=== PATIENT | male | born 1955 | race Caucasian/White ===

== ENCOUNTER 2019-01-03 17:30 | Emergency (ER) | payer OTHER, MEDICARE ==
--- NOTE | 2019-01-03 20:47 | ER Document Report ---
ED Medical Screen (RME) - General Chief Complaint: Breathing Difficulty Stated Complaint: SHORTNESS OF BREATH Time Seen by Provider: 01/03/19 20:42 Primary Care Provider: LUIZ YOUNGER FNP [Primary Care Provider] - Follow up as needed Notes: 63-year-old male with chief complaint of one week of worsening dyspnea on exertion, inability to lay flat, and intermittent shortness of breath at rest. He also complains of bilateral lower extremity swelling which is new. [facility] Denies history of congestive heart failure. Denies chest pain. Medical history includes hypertension and insulin-dependent type 2 diabetes, medicated. TRAVEL OUTSIDE OF THE [place] IN LAST 30 DAYS: No - Related Data Allergies/Adverse Reactions: Penicillins Allergy (Severe, Verified 04/25/16 16:15) Swelling, high temp, seizures Sulfa (Sulfonamide Antibiotics) Allergy (Severe, Verified 04/25/16 16:15) Rash codeine Adverse Reaction (Verified 05/28/16 10:42) "passes out" Past Medical History - Past Medical History Cardiac Medical History: Reports: Hx Hypertension - 16yrs-takes meds Denies: Hx Atrial Fibrillation, Hx Congestive Heart Failure, Hx Coronary Artery Disease, Hx Heart Attack, Hx Hypercholesterolemia, Hx Peripheral Vascular Disease, Hx Pulmonary Embolism, Hx Heart Murmur Pulmonary Medical History: Reports: Hx Asthma - 6 yrs-inhaler prn, Hx Pneumonia - 20 yrs ago Denies: Hx Bronchitis, Hx COPD, Hx Respiratory Failure, Hx Sleep Apnea, Hx Tuberculosis Endocrine Medical History: Reports: Hx Hypothyroidism - meds-1 year. Denies: Hx Graves' Disease, Hx Hyperthyroidism Malignancy Medical History: Denies Hx Leukemia, Denies Hx Lung Cancer GI Medical History: Reports: Hx Gastroesophageal Reflux Disease. Denies: Hx Crohn's Disease, Hx Hiatal Hernia, Hx Irritable Bowel, Hx Liver Failure, Hx Pancreatitis, Hx Ulcer Musculoskeltal Medical History: Reports Hx Arthritis - 10 yrs, Denies Hx Fibromyalgia, Denies Hx Muscular Dystrophy Traumatic Medical History: Reports: Hx Fractures - right great toe/2nd toe Infectious Medical History: Denies: Hx HIV Past Surgical History: Reports: Hx Cholecystectomy - open nova , Hx Herniorrhaphy - bilateral groin with mesh, Hx Tonsillectomy - . Denies: Hx Appendectomy, Hx Bowel Surgery, Hx Colostomy, Hx Coronary Artery Bypass Graft, Hx Gastric Bypass Surgery, Hx Pacemaker Physical Exam - Vital signs Vitals: Temp Pulse Resp BP Pulse Ox 98.5 F 65 19 165/73 H 94 01/03/19 17:37 01/03/19 17:37 01/03/19 17:37 01/03/19 17:37 01/03/19 17:37 - Respiratory Breath sounds: Rales - Soft rales in lung bases bilaterally, clear otherwise - Extremities General lower extremity: Edema - Bilateral 2+ pitting edema Course - Vital Signs Vital signs: Temp Pulse Resp BP Pulse Ox 98.5 F 65 19 165/73 H 94 01/03/19 17:37 01/03/19 17:37 01/03/19 17:37 01/03/19 17:37 01/03/19 17:37 Doctor's Discharge - Discharge Referrals: LUIZ YOUNGER FNP [Primary Care Provider] - Follow up as needed
--- NOTE | 2019-01-03 21:57 | RADIOLOGY REPORT (SQ) ---
XR CHEST 1 VIEW HISTORY: Shortness of breath. COMPARISON: 04/15/2016 FINDINGS: The heart size is normal. The lungs are clear. No pleural effusions or pneumothorax is seen. No acute bony findings. IMPRESSION: No evidence of acute cardiopulmonary disease.
[2019-01-03 22:52] LABS: ABSOLUTE BASOPHILS # (AUTO) 0.1 10^3/uL (0.0-0.2); ABSOLUTE EOSINOPHILS # (AUTO) 0.3 10^3/uL (0.0-0.6); ABSOLUTE LYMPHOCYTES (AUTO) 1.5 10^3/uL (0.5-4.7); ABSOLUTE MONOCYTES (AUTO) 0.6 10^3/uL (0.1-1.4); ABSOLUTE NEUT (AUTO) 5.9 10^3/uL (1.7-8.2); BASOPHILS % (AUTO) 1.1 % (0-2); EOSINOPHILS % (AUTO) 4.2 % (0-6); HEMATOCRIT 40.1 % (37.9-51.0); HEMOGLOBIN 13.8 g/dL (13.5-17.0); LYMPHOCYTES % (AUTO) 17.7 % (13-45); MEAN CORPUSCULAR HEMOGLOBIN 30.5 pg (27.0-33.4); MEAN CORPUSCULAR HGB CONC 34.4 g/dL (32.0-36.0); MEAN CORPUSCULAR VOLUME 89 fl (80-97); MONOCYTES % (AUTO) 6.8 % (3-13); PLATELET COUNT 132 10^3/uL (150-450); RED BLOOD COUNT 4.52 10^6/uL (4.35-5.55); RED CELL DISTRIBUTION WIDTH 14.2 % (11.5-14.0); SEGMENTED NEUTROPHILS % (AUTO) 70.2 % (42-78); TOTAL CELLS COUNTED % (AUTO) 100 %; WHITE BLOOD COUNT 8.4 10^3/uL (4.0-10.5)
[2019-01-03 23:01] LABS: ALANINE AMINOTRANSFERASE 28 U/L (21-72); ALBUMIN 4.6 g/dL (3.5-5.0); ALKALINE PHOSPHATASE 112 U/L (38-126); ANION GAP 11 (5-19); ASPARTATE AMINO TRANSFERASE 15 U/L (17-59); BILIRUBIN,DIRECT 0.2 mg/dL (0.0-0.4); BILIRUBIN,TOTAL 0.4 mg/dL (0.2-1.3); BLOOD UREA NITROGEN 18 mg/dL (7-20); CALCIUM 9.9 mg/dL (8.4-10.2); CARBON DIOXIDE 30 mmol/L (22-30); CHLORIDE 101 mmol/L (98-107); GLUCOSE 102 mg/dL (75-110); POTASSIUM 3.9 mmol/L (3.6-5.0); SODIUM 142.2 mmol/L (137-145); TOTAL PROTEIN 6.9 g/dL (6.3-8.2)
[2019-01-03 23:12] LABS: NT PRO BNP 80 pg/mL (5-900); TROPONIN I < 0.012 ng/mL
--- NOTE | 2019-01-04 01:13 | ER Document Report ---
ED General - General Chief Complaint: Breathing Difficulty Stated Complaint: SHORTNESS OF BREATH Time Seen by Provider: 01/03/19 20:42 Primary Care Provider: LUIZ YOUNGER FNP [NO LOCAL MD] - Follow up as needed Notes: 63-year-old male to the emergency department for evaluation of shortness of breath. Patient states this has been going on for several weeks. Went to his provider and they were concerned so sent him here. Patient has also been noticing he has a large amount of lower extremity edema. Denies any leg pain though. Denies any chest pain or other issues at this time. States that he had an ultrasound of the liver and was told he had some fluid retention and does not know what that means. TRAVEL OUTSIDE OF THE [place] IN LAST 30 DAYS: No - HPI Onset/Duration: Gradual, Waxing and waning Severity: Mild Pain Level: Denies Associated symptoms: Shortness of breath - Related Data Allergies/Adverse Reactions: Penicillins Allergy (Severe, Verified 04/25/16 16:15) Swelling, high temp, seizures Sulfa (Sulfonamide Antibiotics) Allergy (Severe, Verified 04/25/16 16:15) Rash codeine Adverse Reaction (Verified 05/28/16 10:42) "passes out" Past Medical History - General Information source: Patient - Social History Smoking Status: Former Smoker Chew tobacco use (# tins/day): No Frequency of alcohol use: None Drug Abuse: None Lives with: Family Family History: Reviewed & Not Pertinent Patient has suicidal ideation: No Patient has homicidal ideation: No - Past Medical History Cardiac Medical History: Reports: Hx Hypertension - 16yrs-takes meds Denies: Hx Atrial Fibrillation, Hx Congestive Heart Failure, Hx Coronary Artery Disease, Hx Heart Attack, Hx Hypercholesterolemia, Hx Peripheral Vascular Disease, Hx Pulmonary Embolism, Hx Heart Murmur Pulmonary Medical History: Reports: Hx Asthma - 6 yrs-inhaler prn, Hx Pneumonia - 20 yrs ago Denies: Hx Bronchitis, Hx COPD, Hx Respiratory Failure, Hx Sleep Apnea, Hx Tuberculosis Endocrine Medical History: Reports: Hx Hypothyroidism - meds-1 year. Denies: Hx Graves' Disease, Hx Hyperthyroidism Renal/ Medical History: Denies: Hx Peritoneal Dialysis Malignancy Medical History: Denies Hx Leukemia, Denies Hx Lung Cancer GI Medical History: Reports: Hx Gastroesophageal Reflux Disease. Denies: Hx Crohn's Disease, Hx Hiatal Hernia, Hx Irritable Bowel, Hx Liver Failure, Hx Pancreatitis, Hx Ulcer Musculoskeletal Medical History: Reports Hx Arthritis - 10 yrs, Denies Hx Fibromyalgia, Denies Hx Muscular Dystrophy Traumatic Medical History: Reports: Hx Fractures - right great toe/2nd toe Infectious Medical History: Denies: Hx HIV Past Surgical History: Reports: Hx Cholecystectomy - open nova , Hx Herniorrhaphy - bilateral groin with mesh, Hx Tonsillectomy - . Denies: Hx Appendectomy, Hx Bowel Surgery, Hx Colostomy, Hx Coronary Artery Bypass Graft, Hx Gastric Bypass Surgery, Hx Pacemaker - Immunizations Hx Pneumococcal Vaccination: 08/09/13 Review of Systems - Review of Systems Notes: Constitutional: denies: Chills, Diaphoresis, Fever, Malaise, Weakness EENT: denies: Eye discharge, Blurred vision, Tearing, Double vision, Nose congestion, Nose discharge, Throat swelling, Mouth pain Cardiovascular: denies: Palpitations, Heart racing, Orthopnea, Dyspnea, Chest pain Respiratory: denies: Cough, Hurts to breathe, Wheezing, +Shortness of breath Gastrointestinal: denies: Abdominal pain, Diarrhea, Nausea, Vomiting, Black stools, bright red blood in stool Genitourinary: denies: Burning, Dysuria, Discharge, Frequency, Flank pain, Hematuria Musculoskeletal: denies: Joint pain, Joint swelling, Muscle pain, Muscle stiffness, back pain. Positive bilateral lower extremity edema Hematologic/Lymphatic: denies: Anemia, Easy bleeding, Easy bruising, Blood clots Neurological/Psychological: denies: Confusion, Dementia, Depression, Loss of consciousness Skin: No lesions, no masses, no skin breakdown, no abscesses Physical Exam - Vital signs Vitals: Temp Pulse Resp BP Pulse Ox 98.5 F 65 19 165/73 H 94 01/03/19 17:37 01/03/19 17:37 01/03/19 17:37 01/03/19 17:37 01/03/19 17:37 Interpretation: Normal - General General appearance: Appears well, Alert - HEENT Head: Normocephalic, Atraumatic Eyes: Normal Pupils: PERRL - Respiratory Respiratory status: No respiratory distress Chest status: Nontender Breath sounds: Normal Chest palpation: Normal - Cardiovascular Rhythm: Regular Heart sounds: Normal auscultation Murmur: No - Abdominal Inspection: Normal Distension: No distension Bowel sounds: Normal Tenderness: Nontender Organomegaly: No organomegaly - Back Back: Normal, Nontender - Extremities General upper extremity: Normal inspection, Nontender, Normal color, Normal ROM, Normal temperature General lower extremity: Normal inspection, Nontender, Edema, Normal color, Normal ROM, Normal temperature, Normal weight bearing. No: Jorge's sign - Neurological Neuro grossly intact: Yes Cognition: Normal Orientation: AAOx4 Criss Coma Scale Eye Opening: Spontaneous Criss Coma Scale Verbal: Oriented [place] Coma Scale Motor: Obeys Commands Criss Coma Scale Total: 15 Speech: Normal Motor strength normal: LUE, RUE, LLE, RLE Sensory: Normal - Psychological Associated symptoms: Normal affect, Normal mood - Skin Skin Temperature: Warm Skin Moisture: Dry Skin Color: Normal Course - Re-evaluation Re-evalutation: 01/04/19 05:59 Currently patient has lower extremity edema but no signs of florid congestive heart failure. His chest x-ray is unremarkable. Denies any chest pain his labs are unremarkable. BNP is normal. Uncertain etiology. Will start him on some Lasix. [place] a little better after breathing treatment but no active wheezing. Patient would like to go home. Incidentally, patient does have a history of hypothyroidism and this could be an unexplained cause of some edema so we will order the TSH free T4 but patient states that he has been compliant on his thyroid medications. We will follow-up on the thyroid testing. Will DC at this time stable condition. Patient has good close follow-up. 01/04/19 07:24 Laboratory 01/03/19 01/03/19 01/03/19 22:30 22:30 22:30 WBC 8.4 RBC 4.52 Hgb 13.8 Hct 40.1 MCV 89 MCH 30.5 MCHC 34.4 RDW 14.2 H Plt Count 132 L Seg Neutrophils % 70.2 Lymphocytes % 17.7 Monocytes % 6.8 Eosinophils % 4.2 Basophils % 1.1 Absolute Neutrophils 5.9 Absolute Lymphocytes 1.5 Absolute Monocytes 0.6 Absolute Eosinophils 0.3 Absolute Basophils 0.1 D-Dimer Sodium 142.2 Potassium 3.9 Chloride 101 Carbon Dioxide 30 Anion Gap 11 BUN 18 Creatinine 1.03 Est GFR ( Amer) > 60 Est GFR (Non-Af Amer) > 60 Glucose 102 Calcium 9.9 Total Bilirubin 0.4 Direct Bilirubin 0.2 Neonat Total Bilirubin Not Reportable Neonat Direct Bilirubin Not Reportable Neonat Indirect Bili Not Reportable AST 15 L ALT 28 Alkaline Phosphatase 112 Creatine Kinase Troponin I < 0.012 NT-Pro-B Natriuret Pep 80 Total Protein 6.9 Albumin 4.6 TSH Free T4 01/03/19 01/03/19 01/03/19 22:30 22:30 22:30 WBC RBC Hgb Hct MCV MCH MCHC RDW Plt Count Seg Neutrophils % Lymphocytes % Monocytes % Eosinophils % Basophils % Absolute Neutrophils Absolute Lymphocytes Absolute Monocytes Absolute Eosinophils Absolute Basophils D-Dimer 0.37 Sodium Potassium Chloride Carbon Dioxide Anion Gap BUN Creatinine Est GFR ( Amer) Est GFR (Non-Af Amer) Glucose Calcium Total Bilirubin Direct Bilirubin Neonat Total Bilirubin Neonat Direct Bilirubin Neonat Indirect Bili AST ALT Alkaline Phosphatase Creatine Kinase 78 Troponin I NT-Pro-B Natriuret Pep Total Protein Albumin TSH 3.50 Free T4 0.98 Chest X-Ray 01/03/19 21:15 IMPRESSION: No evidence of acute cardiopulmonary disease. - Vital Signs Vital signs: Temp Pulse Resp BP Pulse Ox 98.3 F 85 17 133/67 H 95 01/04/19 02:50 01/04/19 02:50 01/04/19 02:50 01/04/19 02:50 01/04/19 02:50 - Laboratory Result Diagrams: 01/03/19 22:30 01/03/19 22:30 Laboratory results interpreted by me: 01/03/19 01/03/19 22:30 22:30 RDW 14.2 H Plt Count 132 L AST 15 L - EKG Interpretation by Wy EKG shows normal: Sinus rhythm, [place], Intervals, QRS Complexes, ST-T Waves Discharge - Discharge Clinical Impression: Peripheral edema Dyspnea Qualifiers: Dyspnea type: unspecified Qualified Code(s): R06.00 - Dyspnea, unspecified Condition: Good Disposition: HOME, SELF-CARE Instructions: Dyspnea, Nonspecific ([facility]), Edema, Peripheral ([facility]) Additional Instructions: Please follow-up with your outpatient providers for further testing. The workup today was unremarkable. It does not appear that you are in congestive heart failure. It does not appear that you have a blood clot. The chest x-ray was unremarkable. We are going to try some diuretics to help get some of the fluid off of you. We are also going to try a bronchodilator to see if this will help with your breathing. You will need further testing. As discussed, it may be beneficial to do a sleep study to see if you have significant sleep apnea. Please discuss this with your providers. Prescriptions: Albuterol Sulfate [Proair HFA Inhalation Aerosol 8.5 gm MDI] 2 puff IH Q4H PRN #1 mdi PRN Reason: Furosemide [Lasix 20 mg Tablet] 20 mg PO QAM 30 Days #30 tablet Referrals: LUIZ YOUNGER FNP [NO LOCAL MD] - Follow up as needed
[2019-01-04] MEDS ORDERED: ALBUTEROL SULFATE 0.083% NEB 2.5 MG/3 ML AMPUL NEB ONE (02:03)
[2019-01-04 03:39] VITALS: BP 133/67
[2019-01-04 06:58] LABS: FREE T4 (FREE THYROXINE) 0.98 ng/dL (0.78-2.19)
[2019-01-04 07:12] LABS: THYROID STIMULATING HORMONE 3.5 uIU/mL (0.47-4.68)
--- NOTE | 2019-01-05 09:36 | EKG REPORT ---
SEVERITY:- OTHERWISE NORMAL ECG - SINUS RHYTHM : Confirmed by: Amairani Chilel 05-Jan-2019 09:35:34
== END 2019-01-04 02:50 | disposition home or self-care (01) ==
LOC: ER 17:30
DX: R60.0 Localized edema (principal); R06.00 Dyspnea, unspecified; Z87.891 Personal history of nicotine dependence; I10 Essential (primary) hypertension; Z79.899 Other long term (current) drug therapy
CPT/HCPCS: 36415; 71045; 80053; 82550; 83880; 84439; 84443; 84484; 85025; 85379; 93005; 93010; 99284

== ENCOUNTER 2019-12-12 10:06 | Day surgery (SDC) | payer OTHER, MEDICARE ==
[~2019-12-12 10:06] MED LIST: PROPOFOL INJ 200 MG/20 ML VIAL IV ONE
[2019-12-12] MEDS ORDERED: PROPOFOL INJ 200 MG/20 ML VIAL IV ONE (11:44)
[2019-12-12 12:39] VITALS: BP 158/79
--- NOTE | 2019-12-12 13:49 | Operative Report ---
Operative Report DATE OF SURGERY: 12/12/19 Operative Report: The risk, benefits and alternatives of the procedure including the risk of bleeding, perforation requiring surgery have been explained to the patient in detail and informed consent has been obtained. Patient is placed in a left, lateral decubital position. Timeout was called. Propofol medication is administered. Rectal examination is done which did not reveal any masses, tears or fissures. An Olympus videoscope was introduced into the patient's rectum. Scope was then carefully advanced all the way to the cecum. Cecum was identified by the usual anatomical landmarks including the ileocecal valve as well as appendiceal office. Photodocumentation is obtained. Scope was then sequentially pulled back via the various segments of the colon including the ascending colon, hepatic flexure, transverse colon, splenic flexure, descending colon and finally into the rectosigmoid portions of the colon. Retroflexion maneuvers performed. PREOPERATIVE DIAGNOSIS: Change in bowel habits POSTOPERATIVE DIAGNOSIS: Multiple colon polyps noted. The polyps are distributed in the ascending, transverse, and descending along with the sigmoid areas. All the polyps were removed with snare polypectomy. 1 polyp was not retrieved. Internal hemorrhoids OPERATION: Colonoscopy with snare polypectomy. Extended procedure greater than 30 minutes SURGEON: MALA SINGH ANESTHESIA: LMAC TISSUE REMOVED OR ALTERED: As noted above. COMPLICATIONS: None. ESTIMATED BLOOD LOSS: None. INTRAOPERATIVE FINDINGS: As noted above. PROCEDURE: Patient tolerated the procedure well. No immediate postprocedure complications are noted. Patient is discharged in good condition. Discharge date 12/12/2019. Discharge diet: Regular. Discharge activity: Regular. 2 to 3-week follow-up to discuss findings. Patient is instructed call the office or proceed to the emergency room should there be any further problems or questions. Wait on the pathology. 1 year surveillance colonoscopy.
== END 2019-12-12 12:37 | disposition home or self-care (01) ==
LOC: END 10:06
PROVIDERS: ATTEND Internal Medicine Gastroenterology
DX: D12.2 Benign neoplasm of ascending colon (principal); D12.3 Benign neoplasm of transverse colon; D12.5 Benign neoplasm of sigmoid colon; K64.8 Other hemorrhoids; Z79.51 Long term (current) use of inhaled steroids; Z79.899 Other long term (current) drug therapy; Z79.84 Long term (current) use of oral hypoglycemic drugs; Z79.4 Long term (current) use of insulin; Z79.891 Long term (current) use of opiate analgesic; Z88.2 Allergy status to sulfonamides; Z88.5 Allergy status to narcotic agent; Z88.0 Allergy status to penicillin; J45.909 Unspecified asthma, uncomplicated; I10 Essential (primary) hypertension; E11.9 Type 2 diabetes mellitus without complications; E66.9 Obesity, unspecified; G47.33 Obstructive sleep apnea (adult) (pediatric)
CPT/HCPCS: 45385; 82962; 88305 ×2; J2704